=== PATIENT | male | born 1960 | race African-American/Black ===

== ENCOUNTER 2017-11-20 11:46 | Emergency (ER) | payer MEDICAID ==
[~2017-11-20] VITALS: Ht 180.3 cm; Wt 80.0 kg
[2017-11-20 12:40] VITALS: BP 129/78
== END 2017-11-20 12:56 | disposition left against medical advice (07) ==
LOC: ER 12:19
DX: Z53.21 Procedure and treatment not carried out due to patient leaving prior to being seen by health care provider (principal)

== ENCOUNTER 2018-11-12 15:58 | Emergency (ER) | payer MEDICAID ==
[~2018-11-12] VITALS: Ht 185.4 cm; Wt 66.0 kg
[2018-11-12 18:20] VITALS: BP 158/95
== END 2018-11-12 18:22 | disposition home or self-care (01) ==
LOC: ER 15:58
DX: R04.0 Epistaxis (principal); F17.200 Nicotine dependence, unspecified, uncomplicated; Z76.5 Malingerer [conscious simulation]
CPT/HCPCS: 99283

== ENCOUNTER 2018-12-04 07:15 | Emergency (ER) | payer MEDICAID ==
[~2018-12-04] VITALS: Ht 172.7 cm; Wt 70.0 kg
[2018-12-04] MEDS ORDERED: IBUPROFEN 800MG TABLET PO ONE (08:00)
[2018-12-04] MEDS ORDERED: ASPIRIN 81MG TABLET PO ONE (08:15)
[2018-12-04 08:33] LABS: CHLORIDE 102 mEq/L (98-107)
[2018-12-04 08:42] LABS: CREATINE KINASE 253 IU/L (39-308)
[2018-12-04 10:38] LABS: *COCAINE SCREEN URINE PRESUMTIVE POSITIVE (NEGATIVE)
[2018-12-04 10:39] LABS: *AMPHETAMINES SCREEN URINE NEGATIVE (NEGATIVE); *BARBITURATES SCREEN URINE NEGATIVE (NEGATIVE); *BENZODIAZEPINES SCREEN URINE NEGATIVE (NEGATIVE); CANNABINOID URINE SCREEN PRESUMTIVE POSITIVE (NEGATIVE); METHADONE URINE SCREEN NEGATIVE (NEGATIVE); OPIATES URINE SCREEN PRESUMTIVE POSITIVE (NEGATIVE); PHENCYCLIDINE URINE SCREEN NEGATIVE (NEGATIVE)
[2018-12-04 11:51] LABS: CREATINE KINASE 237 IU/L (39-308)
[2018-12-04 13:40] VITALS: BP 130/85
== END 2018-12-04 13:43 | disposition home or self-care (01) ==
LOC: ER 07:15
DX: S20.219A Contusion of unspecified front wall of thorax, initial encounter (principal); F41.9 Anxiety disorder, unspecified; I10 Essential (primary) hypertension; F12.10 Cannabis abuse, uncomplicated; F14.10 Cocaine abuse, uncomplicated; F17.200 Nicotine dependence, unspecified, uncomplicated; V09.9XXA Pedestrian injured in unspecified transport accident, initial encounter; Y93.89 Activity, other specified; Y92.89 Other specified places as the place of occurrence of the external cause; Y99.8 Other external cause status
CPT/HCPCS: 36415; 71045; 80305; 82550; 84484; 93005; 99284

== ENCOUNTER 2018-12-14 14:37 | Emergency (ER) | payer MEDICAID ==
[~2018-12-14] VITALS: Ht 172.7 cm; Wt 75.0 kg
[2018-12-14] MEDS ORDERED: KETOROLAC 60MG/2ML VIAL IM STA (15:13)
[2018-12-14 16:02] VITALS: BP 113/74
== END 2018-12-14 17:39 | disposition left against medical advice (07) ==
LOC: ER 14:37
DX: R07.89 Other chest pain (principal); I10 Essential (primary) hypertension; F41.9 Anxiety disorder, unspecified; V03.10XA Pedestrian on foot injured in collision with car, pick-up truck or van in traffic accident, initial encounter; Y93.89 Activity, other specified; Y92.488 Other paved roadways as the place of occurrence of the external cause
CPT/HCPCS: 93005; 96372; 99283; J1885

== ENCOUNTER 2020-10-29 10:05 | Emergency (ER) | payer MEDICAID ==
[~2020-10-29] VITALS: Ht 175.3 cm; Wt 82.0 kg
[2020-10-29 10:43] LABS: BASOPHILS % 1.3 % (0.0-2.0); HEMATOCRIT. 44.6 % (42.0-52.0); HEMOGLOBIN. 15.6 g/dL (14.0-18.0); LYMPHOCYTES % 26.9 % (20.0-50.0); MEAN CORPUSCULAR HEMOGLOBIN 33.1 pg (28.0-32.0); MEAN CORPUSCULAR VOLUME 95.1 fL (80.0-94.0); MEAN PLATELET VOLUME 7.9 fl (7.4-10.4); MONOCYTES % 7.1 % (2.0-8.0); NEUTROPHILS % 62.7 % (40.0-76.0); PLATELET 353 x1000/uL (130-400); RED BLOOD CELL COUNT 4.69 mill/uL (4.7-6.1); RED CELL DISTRIBUTION WIDTH 15.6 % (11.6-14.6)
[2020-10-29 10:49] LABS: CHLORIDE 105 mEq/L (98-107)
[2020-10-29 10:58] LABS: ETHANOL BLOOD 170 mg/dL
[2020-10-29] MEDS ORDERED: SODIUM CHLORIDE 0.9% 1,000 ML IV ONE (12:00)
[2020-10-29 12:20] VITALS: BP 164/98
== END 2020-10-29 12:41 | disposition home or self-care (01) ==
LOC: ER 10:05
DX: F10.129 Alcohol abuse with intoxication, unspecified (principal); T51.0X1A Toxic effect of ethanol, accidental (unintentional), initial encounter; I10 Essential (primary) hypertension; J98.11 Atelectasis; F12.10 Cannabis abuse, uncomplicated; F14.10 Cocaine abuse, uncomplicated; F41.9 Anxiety disorder, unspecified; E86.0 Dehydration; Y92.89 Other specified places as the place of occurrence of the external cause; Y90.8 Blood alcohol level of 240 mg/100 ml or more
CPT/HCPCS: 36415; 71045; 80053; 80320; 83690; 85025; 96360; 99284; J7030; G0480